=== PATIENT | male | born 1995 | race Hispanic/Latino ===

== ENCOUNTER 2017-08-11 03:06 | Emergency (ER) | payer OTHER ==
[2017-08-11] MEDS ORDERED: Lidocaine 1% w/Epinephrine 1:100K 20 ML VIAL ONE (06:00)
[2017-08-11] MEDS ORDERED: Adacel (T-DAP) 0.5 ML VIAL ONE (06:28)
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
== END 2017-08-11 06:58 | disposition home or self-care (01) ==
LOC: ERS 03:06
DX: S02.2XXA Fracture of nasal bones, initial encounter for closed fracture (principal); F10.129 Alcohol abuse with intoxication, unspecified; Y90.6 Blood alcohol level of 120-199 mg/100 ml; Y04.0XXA Assault by unarmed brawl or fight, initial encounter
CPT/HCPCS: 12011; 36415; 70450; 70486; 72125; 80307; 90471; 90715; J2001